=== PATIENT | female | born 1960 | race Caucasian/White ===

== ENCOUNTER → 2019-02-12 | Outpatient (CLI) | payer MEDICARE, MEDICAID ==
--- NOTE | 2019-02-12 14:27 | Diagnostic Imaging Report ---
PROCEDURE: MRI lumbar spine. TECHNIQUE: Multiplanar, multisequence MRI of the lumbar spine was performed without contrast. INDICATION: Low back pain. COMPARISON: There are no prior studies available for comparison. FINDINGS: The coronal localizer does show that there is moderate dextroscoliosis of the lower lumbar spine. The T2 sagittal images reveal that the vertebral body heights are within normal limits. There is desiccation of the discs at L3-L4, L4-L5, and L5-S1 and there is mild narrowing of the disc spaces at L4-L5 and L5-S1. At the L3-L4 level, there is a slight disc bulge centrally. The AP diameter of the thecal sac is narrowed to 11.6 mm. There is no neuroforaminal narrowing at this level. At the L4-L5 level, there is also a disc bulge. The AP diameter of the thecal sac measures 12.9 mm. However, there is narrowing of the left lateral aspect of the thecal sac due to the scoliosis and to ligamentous and bony overgrowth. The neuroforamen on the left is narrowed as well. At L5-S1, there is a disc bulge to the right. The disc compresses the right ventral aspect of the thecal sac and narrows the AP diameter to 11.8 mm. There is also narrowing of the neuroforamen on the right at this level. There is no evidence for spinal stenosis or nerve root encroachment at L1-L2 or L2-L3. There is no abnormal signal arising from the cord or other vertebral bodies to indicate an acute abnormality. IMPRESSION: 1. 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 There is no evidence for high-grade central stenosis at any of these levels but there is narrowing of the neuroforamen on the left at L4-L5 and on the right at L5-S1. 2. There is no sign of any acute bony abnormality. There is no evidence for cord lesion either. Dictated by: Dictated on workstation # [id number]
== END ==
LOC: RAD 09:45
PROVIDERS: ATTEND Pediatrics
DX: M41.86 Other forms of scoliosis, lumbar region (principal); M51.17 Intervertebral disc disorders with radiculopathy, lumbosacral region; M48.07 Spinal stenosis, lumbosacral region
CPT/HCPCS: 72148